=== PATIENT | male | born 1995 | race Caucasian/White ===

== ENCOUNTER 2017-02-26 15:26 | Emergency (ER) | payer OTHER ==
[~2017-02-26] VITALS: Ht 185.4 cm; Wt 77.3 kg
[2017-02-26] MEDS ORDERED: IBUP-1022 PO (16:49)
--- NOTE | 2017-02-26 16:52 | REP ---
CT Head without contrast HISTORY: Fall COMPARISON: None There is no intraparenchymal hemorrhage, acute infarct, mass or midline shift. The ventricular system is normal in appearance. There is no extra cerebral collection. There is no fracture. The visualized sinuses are clear. IMPRESSION: There is no intracranial lesion. Signed by Ayad Mendoza MD 02/26/2017 04:42 P
[2017-02-26] MEDS ORDERED: IBUPROFEN 600 MG TAB PO ONE (17:00)
[2017-02-26 17:08] VITALS: BP 133/78
--- NOTE | 2017-02-27 06:21 | REP ---
RIGHT WRIST, FOUR VIEWS: HISTORY: Fall. There is no acute fracture or dislocation. The joint spaces are normal in appearance. A small ossified density is present lateral to the distal radius. This represents ligamentous or tendon calcification or an old avulsion fracture fragment. IMPRESSION: There is no acute fracture or dislocation. Signed by Ayad Mendoza MD 02/27/2017 08:30 A
== END 2017-02-26 17:13 | disposition home or self-care (01) ==
LOC: M ED 15:26
DX: S00.03XA Contusion of scalp, initial encounter (principal); S63.501A Unspecified sprain of right wrist, initial encounter; W14.XXXA Fall from tree, initial encounter; Y92.096 Garden or yard of other non-institutional residence as the place of occurrence of the external cause; Y93.89 Activity, other specified; Y99.9 Unspecified external cause status

== ENCOUNTER 2020-11-15 15:21 | Emergency (ER) | payer OTHER ==
[~2020-11-15] VITALS: Ht 182.9 cm; Wt 79.5 kg
[~2020-11-15 15:21] MED LIST: IBUP-1022 PO
[2020-11-15 16:47] LABS: BASO # 0.1 10^3/uL (0.0-0.2); BASO % 0.6 % (0.0-1.0); EOS # 0.1 10^3/uL (0.0-0.5); EOS % 1.2 % (0.0-3.0); HEMATOCRIT 42.5 % (42.0-52.0); HEMOGLOBIN 14.6 g/dl (13.5-17.5); LYMPH # 1.2 10^3/uL (1.5-5.0); LYMPH % 14.4 % (24.0-44.0); MEAN CORPUSCULAR HEMOGLOBIN 30.7 pg (27.0-33.0); MEAN CORPUSCULAR HGB CONC 34.4 g/dl (32.0-36.5); MEAN CORPUSCULAR VOLUME 89.3 fl (80.0-96.0); MONO # 0.5 10^3/uL (0.0-0.8); MONO % 6.3 % (2.0-8.0); NEUTROPHILS # 6.6 10^3/uL (1.5-8.5); NEUTROPHILS % 77.3 % (36.0-66.0); PLATELET COUNT, AUTOMATED 116 10^3/uL (150-450); RED BLOOD COUNT 4.76 10^6/uL (4.30-6.10); WHITE BLOOD COUNT 8.6 10^3/uL (4.0-10.0)
[2020-11-15 17:20] LABS: BLOOD UREA NITROGEN 12 MG/DL (7-18); CALCIUM LEVEL 8.9 MG/DL (8.5-10.1); CARBON DIOXIDE LEVEL 27 MEQ/L (21-32); CHLORIDE LEVEL 109 MEQ/L (98-107); CK-MB VALUE MASS 1.1 NG/ML (<3.6); CPK CREATINE PHOSPHOKINASE 178 U/L (39-308); CREATININE FOR GFR 0.93 MG/DL (0.70-1.30); GLOMERULAR FILTRATION RATE > 60.0 (>60); GLUCOSE, FASTING 89 MG/DL (70-100); MB/CK RELATIVE INDEX 0.62 (< OR =4); POTASSIUM SERUM 3.6 MEQ/L (3.5-5.1); SODIUM LEVEL 142 MEQ/L (136-145); TROPONIN I < 0.02 NG/ML (< 0.10)
[2020-11-15 19:15] VITALS: BP 177/86
--- NOTE | 2020-11-16 19:46 | ECGEPIP ---
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
== END 2020-11-15 19:43 | disposition home or self-care (01) ==
LOC: M ED 15:21
DX: T75.4XXA Electrocution, initial encounter (principal); Y92.89 Other specified places as the place of occurrence of the external cause